=== PATIENT | female | born 1955 | race African-American/Black ===

== ENCOUNTER 2021-02-20 17:11 | Inpatient (IN) ==
[2021-02-20] MEDS ORDERED: DEXAMETHASONE 4 MG/1 ML VIAL IV STA (20:14)
[2021-02-20] MEDS ORDERED: AZITHROMYCIN INJ 500 MG in SODIUM CHLORIDE 0.9% 250 ML IV STA (20:14)
[2021-02-20 20:28] LABS: Hematocrit 30.8 VOL% (35.7-47.0); Hemoglobin 9.4 GM/DL (12.0-16.0); Immature Granulocytes % 0.7 %; Immature Granulocytes Absolute 0.03 #; Lymphocytes # 0.7 10*3/uL (1.4-4.0); Lymphocytes % 17.8 % (21.3-54.2); Mean Corpuscular HGB Conc 30.5 GM/DL (32-36); Mean Corpuscular Volume 83.9 FL (87-102); Monocytes % 2.9 % (1.7-12.7); Neutrophils % 78.6 % (38.7-73.9); Platelet Count 168 T/CUMM (130-400); Red Blood Count 3.67 MC/CUMM (3.8-5.5); Red Cell Distribution Width 14.2 % (9.3-17.3); White Blood Count 4.1 T/CUMM (4-12)
[2021-02-20 21:11] LABS: Calcium 9.1 MG/DL (8.5-10.1); Ferritin 1590.6 ng/mL (8-252); Osmolality,Calculated 272.2 MOS/KG (273-304); Total Protein 8.3 G/DL (6.4-8.2)
[2021-02-20 22:01] LABS: Lymphocytes 20 % (20-55); Platelet Estimate Normal; Segmented Neutrophils 77 % (50-85); Total Cells Counted 100
[2021-02-20] MEDS ORDERED: ACETAMINOPHEN 325 MG TABLET PO PRN (22:32)
[2021-02-20] MEDS ORDERED: GLUCAGON 1 MG VIAL IM PRN (22:32)
[2021-02-20] MEDS ORDERED: hydrALAZINE 20 MG/1 ML VIAL IV PRN (22:32)
[2021-02-20] MEDS ORDERED: ONDANSETRON 4 MG/2 ML VIAL IV PRN (22:32)
[2021-02-20] MEDS ORDERED: DEXTROSE 50% 25 GM/50 ML VIAL IV PRN (22:32)
[2021-02-20] MEDS ORDERED: MELATONIN 3 MG TABLET PO PRN (22:42)
[2021-02-20] MEDS ORDERED: SODIUM CHLORIDE 0.9% 1,000 ML IV SCH (23:00)
[2021-02-21] MEDS ORDERED: guaiFENesin/DM ER 600-30 MG TABLET PO PRN (00:05)
[2021-02-21] MEDS: cefTRIAXone 1,000 MG in SODIUM CHLORIDE 0.9% 100 ML IV SCH ×2 (01:59→22:29)
[2021-02-21 06:00] LABS: Hematocrit 27.8 VOL% (35.7-47.0); Hemoglobin 8.7 GM/DL (12.0-16.0); Immature Granulocytes Absolute 0.04 #; Lymphocytes # 0.5 10*3/uL (1.4-4.0); Lymphocytes % 12.8 % (21.3-54.2); Mean Corpuscular HGB Conc 31.3 GM/DL (32-36); Mean Corpuscular Volume 81.8 FL (87-102); Mean Platelet Volume 11.5 FL (9.6-12.0); Monocytes % 1.5 % (1.7-12.7); Neutrophils % 84.7 % (38.7-73.9); Platelet Count 237 T/CUMM (130-400); Red Cell Distribution Width 14.2 % (9.3-17.3); White Blood Count 4.1 T/CUMM (4-12)
[2021-02-21 06:26] LABS: Hypochromasia 1+; Lymphocytes 18 % (20-55); Microcytosis 1+; Nucleated Red Blood Cells 1 (0-5); Platelet Estimate Adequate; Segmented Neutrophils 81 % (50-85); Total Cells Counted 100
[2021-02-21 06:36] LABS: Ferritin 1473.7 ng/mL (8-252)
[2021-02-21 06:41] LABS: Albumin 2.7 G/DL (3.4-5.0); Bilirubin,Total 0.7 MG/DL (0.20-1.00); Calcium 8.8 MG/DL (8.5-10.1); Osmolality,Calculated 280.7 MOS/KG (273-304); Potassium 4.3 MMOL/L (3.5-5.1); Total Protein 7.3 G/DL (6.4-8.2)
[2021-02-21] MEDS: CHOLECALCIFEROL 1,000 UNIT TABLET PO SCH (09:18)
[2021-02-21] MEDS: CETIRIZINE 10 MG TABLET PO SCH (09:18)
[2021-02-21] MEDS: ASCORBIC ACID 500 MG TABLET PO SCH ×2 (09:18→21:17)
[2021-02-21] MEDS: ZINC GLUCONATE 50 MG TABLET PO SCH (09:18)
[2021-02-21] MEDS: PANTOPRAZOLE 40 MG TABLET PO SCH (09:18)
[2021-02-21] MEDS: DEXAMETHASONE 4 MG/1 ML VIAL IV SCH (09:19)
[2021-02-21] MEDS: ENOXAPARIN 40 MG/0.4 ML SYRINGE SUBCUT SCH (09:19)
[2021-02-21] MEDS: FAMOTIDINE 20 MG TABLET PO SCH ×2 (09:19→21:17)
[2021-02-21] MEDS ORDERED: REMDESIVIR 200 MG in SODIUM CHLORIDE 0.9% 210 ML IV ONE (11:00)
[2021-02-21] MEDS ORDERED: AZITHROMYCIN INJ 500 MG in SODIUM CHLORIDE 0.9% 250 ML IV SCH (21:00)
[2021-02-22 06:39] LABS: Hematocrit 27.1 VOL% (35.7-47.0); Hemoglobin 8.4 GM/DL (12.0-16.0); Immature Granulocytes % 1.3 %; Lymphocytes % 13.7 % (21.3-54.2); Mean Corpuscular Volume 81.6 FL (87-102); Mean Platelet Volume 11.8 FL (9.6-12.0); Platelet Count 295 T/CUMM (130-400); Red Blood Count 3.32 MC/CUMM (3.8-5.5); Red Cell Distribution Width 14.1 % (9.3-17.3); White Blood Count 7.6 T/CUMM (4-12)
[2021-02-22 07:00] LABS: Hypochromasia 1+; Lymphocytes 18 % (20-55); Microcytosis 1+; Platelet Estimate Adequate; Segmented Neutrophils 80 % (50-85); Total Cells Counted 100
[2021-02-22 07:06] LABS: Osmolality,Calculated 286.4 MOS/KG (273-304); Potassium 4.1 MMOL/L (3.5-5.1)
[2021-02-22 07:11] LABS: Ferritin 1716.6 ng/mL (8-252)
[2021-02-22] MEDS: ENOXAPARIN 40 MG/0.4 ML SYRINGE SUBCUT SCH (08:58)
[2021-02-22] MEDS: DEXAMETHASONE 4 MG/1 ML VIAL IV SCH (08:58)
[2021-02-22] MEDS: CETIRIZINE 10 MG TABLET PO SCH (08:59)
[2021-02-22] MEDS: ZINC GLUCONATE 50 MG TABLET PO SCH (08:59)
[2021-02-22] MEDS: PANTOPRAZOLE 40 MG TABLET PO SCH (08:59)
[2021-02-22] MEDS: ASCORBIC ACID 500 MG TABLET PO SCH (08:59)
[2021-02-22] MEDS: CHOLECALCIFEROL 1,000 UNIT TABLET PO SCH (08:59)
[2021-02-22] MEDS ORDERED: REMDESIVIR 100 MG in SODIUM CHLORIDE 0.9% 100 ML IV SCH (09:00)
[2021-02-22] MEDS: FAMOTIDINE 20 MG TABLET PO SCH (09:02)
[2021-02-22 12:20] VITALS: BP 169/89
[2021-02-22] MEDS ORDERED: AZITHROMYCIN 250 MG TABLET PO SCH (15:00)
== END 2021-02-22 13:43 | disposition home health service (06) | DRG 177 ==
LOC: N.ED 17:11 → N.EDINP 22:32 → N.2E 02-21 00:08
PROVIDERS: ADMIT Internal Medicine; ATTEND Internal Medicine